=== PATIENT | female | born 1975 | race Caucasian/White ===

== ENCOUNTER 2020-04-17 05:26 | Day surgery (SDC) | payer BC ==
[2020-04-15 08:37] VITALS: BP 127/73
[2020-04-15 09:18] LABS: ALBUMIN 3.8 g/dL (3.4-5.0); ANION GAP 4 mmol/L (5-15); CALCIUM 9.4 mg/dL (8.5-10.1); CHLORIDE 109 mmol/L (98-107)
[2020-04-15 09:22] LABS: ALANINE AMINOTRANSFERASE 31 U/L (12-78); ALKALINE PHOSPHATASE 123 U/L (45-117); BILIRUBIN,TOTAL 0.3 mg/dL (0.2-1.0); CREATININE 0.88 mg/dL (0.55-1.02)
[~2020-04-17] VITALS: Ht 172.7 cm; Wt 108.0 kg
[~2020-04-17 05:26] MED LIST: ACET-1600 PO; ATOR20TA37 PO; BUPR300T94 PO; Biotin PO; CHOL10003 PO; FLUO40CA2 PO; FLUT15.845 NAS; HYDR50TA99 PO; IBUP-1223 PO; LACT1CAP37 PO; LIRA0.6P2 INJ; MONT10TA11 PO
[2020-04-17 06:34] VITALS: BP 127/73
[2020-04-17] MEDS ORDERED: CIPROFLOXACIN/HYDROCORTISONE EAR SUSP 0.2-1%, 10ML ONE (06:44)
[2020-04-17] MEDS ORDERED: INSU100V8 SQ (06:49)
[2020-04-17] MEDS ORDERED: LACTATED RINGERS 1,000 ML IV SCH (07:00)
[2020-04-17] MEDS ORDERED: CHLORHEXIDINE 15 ML UDC MM ONE (07:00)
[2020-04-17] MEDS ORDERED: FENTANYL PF 100 MCG/2ML ONE (07:18)
[2020-04-17] MEDS ORDERED: HALOPERIDOL 5 MG/ML IV PRN (07:30)
[2020-04-17] MEDS ORDERED: FENTANYL PF 100 MCG/2ML IV PRN (07:30)
[2020-04-17] MEDS ORDERED: LABETALOL 5MG/ML, 20ML IV PRN (07:30)
[2020-04-17] MEDS ORDERED: HYDROcodone/APAP 7.5-325MG/15ML UDC PO PRN (07:30)
[2020-04-17] MEDS ORDERED: HYDROmorphone 1 MG/ML, 1ML INJ IVPush PRN (07:30)
[2020-04-17] MEDS ORDERED: PROMETHAZINE 25 MG/ML, 1ML IVPush PRN (07:30)
[2020-04-17] MEDS ORDERED: MEPERIDINE/PF 25MG/0.5ML IVPush PRN (07:30)
[2020-04-17] MEDS ORDERED: hydrALAzine 20 MG/ML, 1ML IV PRN (07:30)
[2020-04-17] MEDS ORDERED: DIPHENHYDRAMINE 50 MG/ML, 1ML IVPush PRN (07:30)
[2020-04-17] MEDS ORDERED: PROPOFOL 10 MG/ML, 20ML ONE (07:39)
[2020-04-17] MEDS ORDERED: ONDANSETRON 2MG/ML, 2ML ONE (07:39)
[2020-04-17] MEDS ORDERED: CEFAZOLIN 1,000 MG ONE (07:39)
[2020-04-17] MEDS ORDERED: DEXAMETHASONE 4 MG/ML, 1ML ONE (07:39)
[2020-04-17] MEDS ORDERED: OXYcodone 5 MG/5 ML ORAL.SOL UDC PO PRN (08:00)
[2020-04-17] MEDS ORDERED: OXYcodone 5 MG/5 ML ORAL.SOL UDC ONE (08:43)
== END 2020-04-17 09:00 | disposition home or self-care (01) ==
LOC: OUT 05:26 → EDSTATUS 09:00 → OUT 09:00
PROVIDERS: ATTEND Otolaryngology
DX: H69.83 Other specified disorders of Eustachian tube, bilateral (principal); Z20.828 Contact with and (suspected) exposure to other viral communicable diseases; E11.9 Type 2 diabetes mellitus without complications; Z79.899 Other long term (current) drug therapy; Z88.5 Allergy status to narcotic agent; Z91.041 Radiographic dye allergy status
CPT/HCPCS: 36415; 69436; 80053; 82962; 87635; 93005; J1100; J2405; J2704; J3010; J7120; J0690